=== PATIENT | female | born 1980 | race Two or more races ===

== ENCOUNTER → 2017-04-12 | Emergency (ER) | payer OTHER ==
[~2017-04-12] VITALS: Ht 162.6 cm; Wt 71.2 kg
[~2017-04-12] MED LIST: BENADRYL25 MG PO; FIORICET PO; KETO10TA2 PO; VOLTAREM 50 MG PO
== END | disposition home or self-care (01) ==
LOC: ER 15:22
DX: B34.9 Viral infection, unspecified (principal)

== ENCOUNTER → 2017-08-24 11:05 | Outpatient (CLI) | payer OTHER | END | disposition home or self-care (01) | LOC: LAB 11:05 | DX: Z11.3 Encounter for screening for infections with a predominantly sexual mode of transmission (principal); R51 Headache; R42 Dizziness and giddiness ==

== ENCOUNTER 2024-03-18 09:55 | Outpatient (CLI) | payer OTHER | END 2024-03-18 09:58 | disposition home or self-care (01) | LOC: PRENATAL 09:55 | PROVIDERS: ATTEND Obstetrics & Gynecology Maternal & Fetal Medicine | DX: Z76.1 Encounter for health supervision and care of foundling (principal) ==